=== PATIENT | female | born 1950 | race Caucasian/White ===

== ENCOUNTER 2017-05-08 04:50 | Emergency (ER) | payer OTHER ==
[~2017-05-08] VITALS: Ht 162.6 cm; Wt 78.2 kg
[~2017-05-08 04:50] MED LIST: AMLODIPINE BESY10 MG PO; BENTYL10 MG PO; COLACE100 MG PO; OMEPRAZOLE40 M1 PO; PEPCID40 MG PO
[2017-05-08 05:49] LABS: HEMATOCRIT 36.6 % (36.0-46.0); MCH 24.4 PG (29.0-34.0); MCHC 30.9 G/DL (30.0-36.0); MEAN PLAT.VOLUME 11.4 uM^3 (9.5-12.4); PLATELET COUNT 196 K/uL (156-360); RBC DIS.WIDTH-CV 15.3 % (11.8-14.6); RBC DIS.WIDTH-SD 43.3 % (39-53); RED BLOOD COUNT 4.63 M/uL (3.80-5.20); WHITE BLOOD COUNT 8.3 K/uL (4.1-10.2)
[2017-05-08 05:57] LABS: CHLORIDE 108 mEq/L (99-109); POTASSIUM 4.1 mEq/L (3.7-5.4); SODIUM 142 mEq/L (136-147)
[2017-05-08 05:59] LABS: GLUCOSE 87 mg/dL (70-99)
[2017-05-08 06:00] LABS: ANION GAP 10 MEQ/L (2-14)
[2017-05-08 06:01] LABS: TOTAL BILIRUBIN 0.5 mg/dL (0.0-1.0)
[2017-05-08 06:02] LABS: ALKALINE PHOSPHATASE 313 IU/L (3-129)
[2017-05-08 06:03] LABS: GFR ESTIMATE (CALCULATED) > 59 mL/min/
[2017-05-08 06:04] LABS: DIRECT BILIRUBIN 0.2 mg/dL (0.0-0.3); UREA NITROGEN (BUN) 18 mg/dL (9-23)
[2017-05-08 06:06] LABS: LIPASE 29 U/L (1.0-51.0)
[2017-05-08] MEDS ORDERED: PREDNISONE50 MG PO (12:52)
[2017-05-08] MEDS ORDERED: FLEXERIL10 MG PO (12:52)
[2017-05-08] MEDS ORDERED: TORADOL10 MG PO (12:52)
[2017-05-08 14:05] VITALS: BP 163/84
[2017-05-10] MEDS ORDERED: BACTRIM,SEPT1 TABLET PO (14:43)
[2017-05-10] MEDS ORDERED: URSODIOL500 MG PO (14:44)
== END 2017-05-08 14:05 | disposition home or self-care (01) ==
LOC: EME 04:50
PROVIDERS: Emergency Medicine
DX: S16.1XXA Strain of muscle, fascia and tendon at neck level, initial encounter (principal); R21 Rash and other nonspecific skin eruption; R10.9 Unspecified abdominal pain; Z98.84 Bariatric surgery status
CPT/HCPCS: 74177; 80048; 80076; 83605; 83690; 85027; 87040; 99281; 99284; J1885; J2930; J3360; S0028

== ENCOUNTER → 2017-05-11 | Outpatient (CLI) | payer OTHER ==
[~2017-05-11] MED LIST changes: +BACTRIM,SEPT1 TABLET PO; +FLEXERIL10 MG PO; +PREDNISONE50 MG PO; +TORADOL10 MG PO; +URSODIOL500 MG PO
== END | disposition home or self-care (01) ==
LOC: OPR 09:55 → EDSTATUS 10:00
PROC: 0W9G3ZX Drainage of Peritoneal Cavity, Percutaneous Approach, Diagnostic (ICD-10-PCS; principal; 2017-05-11)
DX: R18.8 Other ascites (principal); R10.9 Unspecified abdominal pain; Z98.84 Bariatric surgery status; K22.70 Barrett's esophagus without dysplasia; R79.89 Other specified abnormal findings of blood chemistry; E78.5 Hyperlipidemia, unspecified; D50.9 Iron deficiency anemia, unspecified; E66.9 Obesity, unspecified; Z68.30 Body mass index [BMI] 30.0-30.9, adult; Z88.8 Allergy status to other drugs, medicaments and biological substances
CPT/HCPCS: 77012; 87070; 87075; 87205; 93005; J3010